=== PATIENT | female | born 1985 ===

== ENCOUNTER 2022-05-15 00:46 | Emergency (ER) | payer BC ==
[2022-05-15 01:16] VITALS: BP 102/67; PULSE 93; RESP 17; TEMP 97.5; BMI 24.2
[2022-05-15 02:31] LABS: EPI CELLS 4 /uL (0-25.1); HYALINE CASTS 0 /uL (0-3.1); URINE APPEARANCE CLEAR; URINE BACTERIA 5 /uL (0-1359); URINE BILIRUBIN NEGATIVE (NEGATIVE); URINE COLOR YELLOW; URINE GLUCOSE (UA) NEGATIVE (NEGATIVE); URINE KETONE NEGATIVE (NEGATIVE); URINE LEUK ESTERASE TRACE (NEGATIVE); URINE NITRITE NEGATIVE (NEGATIVE); URINE PROTEIN NEGATIVE (NEGATIVE); URINE RBC 1 /uL (0-23.9); URINE UROBILINOGEN 0.2 mg/dL (0.2-1.0); URINE WBC 17 /uL (0-25.8)
== END 2022-05-15 02:47 | disposition home or self-care (01) ==
LOC: JER 00:46
DX: F19.10 Other psychoactive substance abuse, uncomplicated (principal); Z32.02 Encounter for pregnancy test, result negative
CPT/HCPCS: 76817-TC; 81003; 84703; 99284-25

== ENCOUNTER 2022-05-15 03:12 | Inpatient (IN) | payer BC ==
[2022-05-15 06:34] VITALS: BMI 24.2
[2022-05-15] MEDS ORDERED: ACETAMINOPHEN 325 MG TABLET (FP) PO PRN ×2 (06:57)
[2022-05-15] MEDS ORDERED: MAG HYDROX/AL HYDROX/SIMETH 30 ML UNIT-DOSE CUP PO PRN (06:57)
[2022-05-15] MEDS ORDERED: NALOXONE HCL 0.4 MG/ML VIAL IM PRN (06:57)
[2022-05-15] MEDS ORDERED: methaDONE HCL 10 MG TABLET (FOR DETOX USE ONLY) PO ONE ×2 (06:57→07:45)
[2022-05-15] MEDS ORDERED: IBUPROFEN 400 MG TABLET (FP) PO PRN (06:57)
[2022-05-15] MEDS ORDERED: BENZOCAINE/MENTHOL (CHLORASEPTIC ) LOZENGE MM PRN (06:57)
[2022-05-15] MEDS ORDERED: MAGNESIUM HYDROX 2400MG/30ML ORAL SUSPENSION 30 ML CUP PO PRN (06:57)
[2022-05-15] MEDS ORDERED: NICOTINE POLACRILEX 2 MG GUM BUC PRN (06:57)
[2022-05-15] MEDS ORDERED: P-EPHED 60MG/TRIPROLIDI 2.5MG TABLET PO PRN (06:57)
[2022-05-15] MEDS ORDERED: DICYCLOMINE HCL 10 MG CAPSULE PO PRN (06:57)
[2022-05-15] MEDS ORDERED: NALOXONE HCL (KLOXXADO) 8 MG SPRAY NS PRN (06:57)
[2022-05-15] MEDS ORDERED: MAGNESIUM CITRATE 300 ML BOTTLE PO PRN (06:57)
[2022-05-15] MEDS ORDERED: LOPERAMIDE HCL 2 MG CAPSULE PO PRN (06:57)
[2022-05-15] MEDS ORDERED: guaiFENesin 200 MG/10 ML 10 ML UNIT-DOSE CUPS PO PRN (06:57)
[2022-05-15] MEDS ORDERED: BISMUTH SUBSALICYLATE 524 MG/30 ML PO PRN (06:57)
[2022-05-15] MEDS ORDERED: methaDONE HCL 10 MG TABLET (FOR DETOX USE ONLY) ONE (09:30)
[2022-05-15] MEDS ORDERED: diazePAM 5 MG TABLET ONE (09:30)
[2022-05-15] MEDS: diazePAM 5 MG TABLET PO SCH ×3 (09:33→23:23)
[2022-05-15] MEDS: PRENATAL VITAMINS W/ FOLIC ACID TABLET (FP) PO SCH (09:34)
[2022-05-15] MEDS ORDERED: IBUPROFEN 600 MG TABLET (FP) PO ONE (09:40)
[2022-05-15] MEDS: IBUPROFEN 600 MG TABLET (FP) PO PRN ×2 (09:41→17:55)
[2022-05-15] MEDS: NICOTINE 21 MG/24 HOURS TOPICAL PATCH TD SCH (11:40)
[2022-05-15] MEDS: METHOCARBAMOL 500 MG TABLET PO PRN ×2 (11:40→17:52)
[2022-05-15] MEDS ORDERED: NICOTINE 10 MG CARTRIDGE (INHALER) IH PRN (12:26)
[2022-05-15 12:49] LABS: HEMATOCRIT 34.9 % (32.4-45.2); HEMOGLOBIN 11.8 GM/dL (10.7-15.3); MCHC 33.7 g/dl (32.0-36.0); MEAN PLT VOLUME 9.1 fl (7.5-11.1); PLATELET COUNT 254 10^3/uL (134-434); RBC 4.06 M/mm3 (3.60-5.2); RDW 15.7 % (11.6-15.6); WHITE BLOOD COUNT 9.1 K/mm3 (4.0-10.0)
[2022-05-15 12:53] LABS: CALCIUM 8.9 mg/dL (8.5-10.1)
[2022-05-15 12:54] LABS: ALBUMIN 3.2 g/dl (3.4-5.0); BLOOD UREA NITROGEN 14.6 mg/dL (7-18)
[2022-05-15 12:57] LABS: CREATININE 0.8 mg/dL (0.55-1.3)
[2022-05-15 12:59] LABS: BILIRUBIN,TOTAL 0.3 mg/dL (0.2-1); TOT PROT 6.8 g/dl (6.4-8.2)
[2022-05-15] MEDS: CLINDAMYCIN HCL 150 MG CAPSULE (FP) PO SCH ×2 (14:06→23:24)
[2022-05-15] MEDS: cloNIDine HCL 0.1 MG TABLET PO PRN (14:10)
[2022-05-15] MEDS: diazePAM 5 MG TABLET PO PRN (17:51)
[2022-05-15 17:52] LABS: HIV INTERPRETATION NEGATIVE (NEGATIVE)
[2022-05-15] MEDS: THIAMINE HCL 100 MG TABLET (FP) PO SCH (23:23)
[2022-05-15] MEDS: MELATONIN 5 MG TABLETS PO SCH (23:23)
[2022-05-16] MEDS: diazePAM 5 MG TABLET PO SCH ×2 (05:32→17:29)
[2022-05-16] MEDS: CLINDAMYCIN HCL 150 MG CAPSULE (FP) PO SCH ×3 (05:32→22:56)
[2022-05-16] MEDS: PRENATAL VITAMINS W/ FOLIC ACID TABLET (FP) PO SCH (09:10)
[2022-05-16] MEDS: NICOTINE 21 MG/24 HOURS TOPICAL PATCH TD SCH (09:11)
[2022-05-16] MEDS: diazePAM 5 MG TABLET PO PRN ×2 (10:36→22:57)
[2022-05-16] MEDS: IBUPROFEN 600 MG TABLET (FP) PO PRN (12:49)
[2022-05-16] MEDS: cloNIDine HCL 0.1 MG TABLET PO PRN (12:49)
[2022-05-16] MEDS: METHOCARBAMOL 500 MG TABLET PO PRN (17:28)
[2022-05-16] MEDS: MELATONIN 5 MG TABLETS PO SCH (22:56)
[2022-05-16] MEDS: THIAMINE HCL 100 MG TABLET (FP) PO SCH (22:56)
[2022-05-17] MEDS: CLINDAMYCIN HCL 150 MG CAPSULE (FP) PO SCH (05:47)
[2022-05-17] MEDS ORDERED: diazePAM 5 MG TABLET PO ONE (06:00)
[2022-05-17] MEDS: diazePAM 5 MG TABLET PO PRN (08:37)
[2022-05-17 09:41] VITALS: BP 127/60; PULSE 69; RESP 18; TEMP 97.3
[2022-05-17] MEDS: NICOTINE 21 MG/24 HOURS TOPICAL PATCH TD SCH (11:17)
[2022-05-17] MEDS: PRENATAL VITAMINS W/ FOLIC ACID TABLET (FP) PO SCH (11:18)
== END 2022-05-17 10:13 | disposition home or self-care (01) | DRG 774 ==
LOC: YASAS 03:12 → Y6N 09:56
PROVIDERS: ADMIT Allergy & Immunology; ATTEND Surgery
PROC: HZ2ZZZZ Detoxification Services for Substance Abuse Treatment (ICD-10-PCS; principal; 2022-05-15)
DX: F10.230 Alcohol dependence with withdrawal, uncomplicated (principal); F13.230 Sedative, hypnotic or anxiolytic dependence with withdrawal, uncomplicated; F14.20 Cocaine dependence, uncomplicated; F17.210 Nicotine dependence, cigarettes, uncomplicated; F19.280 Other psychoactive substance dependence with psychoactive substance-induced anxiety disorder; F19.282 Other psychoactive substance dependence with psychoactive substance-induced sleep disorder; K21.9 Gastro-esophageal reflux disease without esophagitis; Z62.810 Personal history of physical and sexual abuse in childhood; Z91.410 Personal history of adult physical and sexual abuse; Z28.310 Unvaccinated for COVID-19; Z28.9 Immunization not carried out for unspecified reason; Z56.0 Unemployment, unspecified; Z59.00 Homelessness unspecified
CPT/HCPCS: 36415; 80053; 81025; 85027; 86632; 86695; 86696; 86780; 87389; 93005; 93010; C9803-CS; U0003; U0005